=== PATIENT | female | born 1975 | race Caucasian/White ===

== ENCOUNTER 2016-10-10 08:18 | Emergency (ER) | payer OTHER ==
[2016-10-10 08:40] VITALS: BP 146/87
--- NOTE | 2016-10-10 09:14 | UC ---
Eye Complaint HPI - HPI Summary HPI Summary: right eye drainage and redness began this morning----has not had contact lens in for over 1 week - History of Current Complaint Chief Complaint: UCEye Stated Complaint: EYE ISSUE Time Seen by Provider: 10/10/16 08:49 Hx Obtained From: Patient Hx Last Menstrual Period: 10/04/16 ?: No Onset/Duration: Sudden Onset, Lasting Days - 1, Still Present Timing: Constant Severity Initially: Moderate Severity Currently: Moderate Pain Intensity: 3 Pain Scale Used: 0-10 Numeric Location of Injury: Conjunctiva Aggravating Factor(s): Nothing Alleviating Factor(s): Nothing Associated Signs And Symptoms: Positive: Drainage (Purulent) - Allergies/Home Medications Allergies/Adverse Reactions: Allergies Allergy/AdvReac Type Severity Reaction Status Date / Time No Known Allergies Allergy Verified 10/10/16 08:40 PMH/Surg Hx/FS Hx/Imm Hx Previously Healthy: Yes - Surgical History Surgical History: Yes Surgery Procedure, Year, and Place: Gastric bypass Jan 2012 - Family History Known Family History: Positive: None - negative for htn, or CAD - Social History Occupation: Employed Full-time Lives: With Family Alcohol Use: Occasionally Substance Use Type: None Smoking Status (MU): Never Smoked Tobacco - Immunization History Most Recent Influenza Vaccination: fall 2015 Review of Systems Constitutional: Negative Skin: Negative Eyes: Drainage - r, Eye Redness - r ENT: Negative Respiratory: Negative Cardiovascular: Negative Gastrointestinal: Negative Genitourinary: Negative Motor: Negative Neurovascular: Negative Musculoskeletal: Negative Neurological: Negative Psychological: Negative All Other Systems Reviewed And Are Negative: Yes Physical Exam Triage Information Reviewed: Yes Appearance: Well-Appearing, No Pain Distress, Well-Nourished Vital Signs: Initial Vital Signs Temp 99.4 F 10/10/16 08:35 Pulse 62 10/10/16 08:35 Resp 16 10/10/16 08:35 BP 146/87 10/10/16 08:35 Pulse Ox 100 10/10/16 08:35 Vital Signs Reviewed: Yes Eye Exam: Normal Eyes: Positive: Conjunctiva Inflamed - R, Discharge - R, Other: - perrla, eomi ENT Exam: Normal ENT: Positive: Normal ENT inspection, Hearing grossly normal, TMs normal. Negative: Nasal congestion, Nasal drainage, Trismus, Muffled/hoarse voice Dental Exam: Normal Neck exam: Normal Neck: Positive: Supple, Nontender Respiratory Exam: Normal Respiratory: Positive: Chest non-tender, Lungs clear, No accessory muscle use Cardiovascular Exam: Normal Cardiovascular: Positive: Pulses Normal, Brisk Capillary Refill Musculoskeletal Exam: Normal Musculoskeletal: Positive: Strength Intact, ROM Intact, No Edema Neurological Exam: Normal Neurological: Positive: Alert, Muscle Tone Normal Psychological Exam: Normal Skin Exam: Normal Eye Complaint Course/Dx - Course Course Of Treatment: polytrim eye drops right eye q 4 hours while awake for 5 days - Differential Dx/Diagnosis Differential Diagnosis/HQI/PQRI: Conjunctivitis, Periorbital Cellulitis, Orbital Cellulitis Provider Diagnoses: OD Conjuctivitis, High Blood Pressure with dx of Hypertension Discharge - Discharge Plan Condition: Stable Disposition: HOME Prescriptions: Polymyx/Trimethoprim OPTH* [Polytrim OPHTH*] 1 drop RIGHT EYE Q4H #1 btl Patient Education Materials: How to Use Eye Drops (ED), DASH Eating Plan (ED), Hypertension (ED), Conjunctivitis (ED) Forms: *Work Release Referrals: Casimiro San MD [Medical Doctor] - If Needed
== END 2016-10-10 09:18 | disposition home or self-care (01) ==
LOC: UCEAST 08:18
DX: H10.9 Unspecified conjunctivitis (principal); R03.0 Elevated blood-pressure reading, without diagnosis of hypertension
CPT/HCPCS: 99212; G0463

== ENCOUNTER 2017-04-03 14:09 | Emergency (ER) | payer OTHER ==
[2017-04-03 15:06] VITALS: BP 131/79
--- NOTE | 2017-04-03 16:21 | UC ---
Respiratory Complaint HPI - HPI Summary HPI Summary: 42 yo female with cough and wheezing x 1 week has been using neb low grade temp sinus pressure has a perceived "immunity to amoxicillin" - History of Current Complaint Chief Complaint: UCRespiratory Stated Complaint: UPPER RESP Time Seen by Provider: 04/03/17 16:17 Hx Obtained From: Patient Hx Last Menstrual Period: one week ago Onset/Duration: Gradual Onset, Lasting Days - 7+ Timing: Constant Severity Initially: Mild Severity Currently: Moderate Pain Intensity: 3 Pain Scale Used: 0-10 Numeric Character: Cough: Nonproductive Alleviating Factors: Bronchodilator Associated Signs And Symptoms: Positive: Wheezing, Nasal Congestion Related History: Similar Episode/Dx as: - bronchitis - Allergies/Home Medications Allergies/Adverse Reactions: Allergies Allergy/AdvReac Type Severity Reaction Status Date / Time No Known Allergies Allergy Verified 04/03/17 15:06 Home Medications: Home Medications Albuterol 2.5MG/3ML (0.083%)* [Ventolin 2.5 MG/3 ML NEB.EDMAR*] 1 dose INH Q4HR [History Confirmed 04/03/17] Albuterol HFA INHALER* [Ventolin HFA Inhaler*] 2 puff INH Q6HR 04/03/17 [ History Confirmed 04/03/17] PMH/Surg Hx/FS Hx/Imm Hx Previously Healthy: Yes Respiratory History: Asthma, Bronchitis, Pneumonia - Surgical History Surgical History: Yes Surgery Procedure, Year, and Place: Gastric bypass Jan 2012 - Family History Known Family History: Positive: None - negative for htn, or CAD, Respiratory Disease Negative: Cardiac Disease, Hypertension - Social History Alcohol Use: Occasionally Substance Use Type: None Smoking Status (MU): Never Smoked Tobacco - Immunization History Most Recent Influenza Vaccination: fall 2015 Review of Systems Constitutional: Fever Skin: Negative Eyes: Negative ENT: Nasal Discharge Respiratory: Cough Cardiovascular: Negative Gastrointestinal: Negative Genitourinary: Negative Motor: Negative Neurovascular: Negative Musculoskeletal: Negative Neurological: Negative Psychological: Negative Is Patient Immunocompromised?: No All Other Systems Reviewed And Are Negative: Yes Physical Exam Triage Information Reviewed: Yes Appearance: Well-Appearing, No Pain Distress, Well-Nourished Vital Signs: Initial Vital Signs Temp 99.1 F 04/03/17 15:04 Pulse 71 04/03/17 15:04 Resp 12 04/03/17 15:04 BP 131/79 01/18/18 15:04 Pulse Ox 100 04/03/17 15:04 Eyes: Positive: Conjunctiva Clear ENT: Positive: Pharynx normal, Nasal drainage, Uvula midline. Negative: Trismus , Muffled voice, Hoarse voice, Dental tenderness, Sinus tenderness Neck: Positive: Supple, Nontender, No Lymphadenopathy Respiratory: Positive: No respiratory distress, No accessory muscle use, Wheezing - with forced expiration Cardiovascular: Positive: RRR, No Murmur Musculoskeletal: Positive: ROM Intact, No Edema Neurological: Positive: Alert Psychological Exam: Normal Skin Exam: Normal UC Diagnostic Evaluation - Laboratory O2 Sat by Pulse Oximetry: 100 - normal/not hypoxic Respiratory Course/Dx - Differential Dx/Diagnosis Provider Diagnoses: acute bronchitis with bronchospasm Discharge - Discharge Plan Condition: Stable Disposition: HOME Prescriptions: Azithromycin TAB* [Zithromax TAB*] 250 mg PO DAILY #6 tab Prednisone [Deltasone] 40 mg PO DAILY #10 tab Patient Education Materials: Acute Bronchitis (ED) Forms: *Work Release Referrals: [facility] [Outside] - If Needed (call this number for help finding a local MD) Additional Instructions: use nebs as directed recheck in 4 days if not better
== END 2017-04-03 16:31 | disposition home or self-care (01) ==
LOC: UCEAST 14:09
DX: J20.9 Acute bronchitis, unspecified (principal)
CPT/HCPCS: 99212; G0463

== ENCOUNTER 2019-01-19 20:26 | Emergency (ER) | payer BC, OTHER ==
[2019-01-19 20:42] VITALS: BP 136/95
--- NOTE | 2019-01-19 20:47 | UC ---
HPI BURN - HPI Summary HPI Summary: Pleasant 43 yo female c/o dorsal L foot burn, s/p accidentally spilling boiling water from pasta on foot approx 40 min [employer]. Painful. Last tet thinks utd. No other burn / injury site. Has ice / wet paper towels. - History of Current Complaint Chief Complaint: UCSkin Stated Complaint: LT FOOT BURN Time Seen by Provider: 01/19/19 20:41 Hx Obtained From: Patient Hx Last Menstrual Period: one week ago Pain Intensity: 7 - Allergy/Home Medications Allergies/Adverse Reactions: Allergies Allergy/AdvReac Type Severity Reaction Status Date / Time No Known Allergies Allergy Verified 01/19/19 20:42 PMH/Surg Hx/FS Hx/Imm Hx Previously Healthy: Yes - Surgical History Surgical History: Yes Surgery Procedure, Year, and Place: Gastric bypass Jan 2012 - Family History Known Family History: Positive: None - negative for htn, or CAD, Respiratory Disease Negative: Cardiac Disease, Hypertension - Social History Alcohol Use: Occasionally Substance Use Type: None Smoking Status (MU): Never Smoked Tobacco - Immunization History Most Recent Influenza Vaccination: fall 2015 Review of Systems All Other Systems Reviewed And Are Negative: Yes Constitutional: Positive: Negative Skin: Positive: Other - see hpi Eyes: Positive: Negative ENT: Positive: Negative Respiratory: Positive: Negative Cardiovascular: Positive: Negative Gastrointestinal: Positive: Negative Genitourinary: Positive: Negative Motor: Positive: Other - see hpi Neurovascular: Positive: Negative Musculoskeletal: Positive: Negative Neurological: Positive: Negative Psychological: Positive: Negative Is Patient Immunocompromised?: No Physical Exam Triage Information Reviewed: Yes Appearance: Well-Appearing, Well-Nourished Vital Signs: Initial Vital Signs Temp 99.0 F 01/19/19 20:39 Pulse 80 01/19/19 20:39 Resp 16 01/19/19 20:39 BP 136/95 01/19/19 20:39 Pulse Ox 97 01/19/19 20:39 Vital Signs Reviewed: Yes Eye Exam: Normal - grossly normal ENT Exam: Normal Neck exam: Normal - grossly normal Respiratory Exam: Normal - RR normal, no dyspnea, no tachypnea Cardiovascular Exam: Normal - HR normal, nondiaphoretic Abdominal Exam: Normal - grossly normal, benign Musculoskeletal Exam: Other - see "skin" below Neurological Exam: Normal - grossly nonfocal Psychological Exam: Normal - conversing easily and appropriately. Skin Exam: Other - nondiaphoretic. No visible or reported rash. L dorsal foot + redness at site of burn approx 11cm x 6cm. Small water bubbles but not yet full blister. CR to toes good. Burn extends to toes, but not fully distal toes. Burn Calculation - [place] Formula for Fluid Resuscitation 24 -Hour Fluid Replacement: 0.0 Course/Dx Burn - Course Course Of Treatment: Reviewed coa / tx plan. Reviewed wound care. Pt would like pain medication, denies personal / fam / household hx addiction. Usual narc talk. EMLA here. Will start silvadene at home. Will check tet immun status with pcp. Will call pcp for f/u this week if possible. Questions as posed answered to the best of my ability. - Diagnoses Provider Diagnosis: Burn Discharge ED - Sign-Out/Discharge Documenting (check all that apply): Patient Departure All imaging exams completed and their final reports reviewed: No Studies - Discharge Plan Condition: Stable Disposition: HOME Prescriptions: HYDROcodone/ACETAMIN 5-325 MG* [[place] 5-325 TAB*] 1 tab PO Q6H PRN #8 tab MDD 4 PRN Reason: Pain - Severe Patient Education Materials: Second Degree Burn (ED) Referrals: Jessica Ziegler MD [Primary Care Provider] - Additional Instructions: Your foot burn likely will blister. Try not to pop the blisters. Silvadene cream - apply thin layer to affected area bid x 5 days Cover with gauze or pad (no "telfa"). Avoid triple antibiotic / neosporin. Elevate as much as possible Do not drive or operate heavy machinery while taking pain medication. Pain medication will cause constipation. - Billing Disposition and Condition Condition: STABLE Disposition: Home
[2019-01-19] MEDS ORDERED: predniSONE TAB* 20 MG PO ONE (20:58)
[2019-01-19] MEDS ORDERED: Silver Sulfadiazine 1%* 20 GM TOPICAL ONE (20:59)
[2019-01-19] MEDS ORDERED: Lidocaine 2.5%/Prilocain 2.5%* 5 GM TUBE TOPICAL ONE (21:00)
[2019-01-19] MEDS ORDERED: HYDROcodone/ACETAMIN 5-325 MG* 1 TAB PO ONE (21:04)
== END 2019-01-19 21:29 | disposition home or self-care (01) ==
LOC: UCCORT 20:26
DX: T25.222A Burn of second degree of left foot, initial encounter (principal); T31.0 Burns involving less than 10% of body surface; X12.XXXA Contact with other hot fluids, initial encounter; Y93.G1 Activity, food preparation and clean up; Y92.9 Unspecified place or not applicable
CPT/HCPCS: 99213; A9270-GY; G0463; J7512

== ENCOUNTER 2019-05-14 18:18 | Emergency (ER) | payer BC ==
[2019-05-14 18:39] VITALS: BP 152/84
[2019-05-14 19:10] LABS: Influenza A Molecular Negative (Negative); Influenza B Molecular Negative (Negative)
[2019-05-14] MEDS ORDERED: Albuterol HFA INHALER* 8 gm MDI INH ONE (19:32)
--- NOTE | 2019-05-14 19:36 | UC ---
Rectal Pain HPI - HPI Summary HPI Summary: 44 yo asthmatic with 4-5 day hx of cough and wheezing using a friends rescue inhaler (she no longer has one) no fever has had chills fatigue no cp or sob - History Of Current Complaint Chief Complaint: UCRespiratory Stated Complaint: COUGH, CONGESTION Time Seen by Provider: 05/14/19 19:22 Hx Obtained From: Patient Hx Last Menstrual Period: one week ago Onset/Duration: Gradual Onset Timing: Constant Severity Initially: Mild Severity Currently: Moderate Pain Intensity: 0 Pain Scale Used: 0-10 Numeric Aggravating Factor(s): Nothing Alleviating Factor(s): Other - MDI - Allergies/Home Medications Allergies/Adverse Reactions: Allergies Allergy/AdvReac Type Severity Reaction Status Date / Time No Known Allergies Allergy Verified 05/14/19 18:36 Home Medications: Home Medications D-Methorphan/PE/Acetaminophen [Daytime Cold Multi-Symp Gelcap] 1 each PO ONCE [History Confirmed 05/14/19] guaiFENesin/CODIENE 100mg/10mg [Robitussin AC 100Mg/10Mg in 5 ml] 10 ml PO Q4H PRN #100 udc MDD 40 05/14/19 [Rx] predniSONE 20 mg TAB [Deltasone 20 MG TAB*] 40 mg PO DAILY #8 tab 05/14/19 [Rx] PMH/Surg Hx/FS Hx/Imm Hx Previously Healthy: Yes Respiratory History: Asthma, Bronchitis - Surgical History Surgical History: Yes Surgery Procedure, Year, and Place: Gastric bypass Jan 2012 - Family History Known Family History: Positive: Respiratory Disease Negative: Cardiac Disease, Hypertension - Social History Alcohol Use: Occasionally Substance Use Type: None Smoking Status (MU): Never Smoked Tobacco - Immunization History Most Recent Influenza Vaccination: fall 2015 Review of Systems All Other Systems Reviewed And Are Negative: Yes Constitutional: Positive: Chills, Fatigue Skin: Positive: Negative Eyes: Positive: Negative ENT: Positive: Negative Respiratory: Positive: Cough, Other - wheezing Cardiovascular: Positive: Negative Gastrointestinal: Positive: Negative Genitourinary: Positive: Negative Motor: Positive: Negative Neurovascular: Positive: Negative Musculoskeletal: Positive: Negative Neurological/Mental Status: Positive: Negative Psychological: Positive: Negative Physical Exam Triage Information Reviewed: Yes Appearance: Well-Appearing, No Pain Distress, Well-Nourished Vital Signs: Initial Vital Signs Temp 99.2 F 05/14/19 18:34 Pulse 76 05/14/19 18:34 Resp 21 05/14/19 18:34 BP 152/84 05/14/19 18:34 Pulse Ox 98 05/14/19 18:34 Vital Signs Reviewed: Yes Eyes: Positive: Conjunctiva Clear ENT: Positive: Hearing grossly normal, Nasal congestion, Uvula midline. Negative: Nasal drainage, Tonsillar swelling, Tonsillar exudate, Trismus, Muffled voice, Hoarse voice, Sinus tenderness Dental Exam: Normal Neck: Positive: Supple, Nontender, No Lymphadenopathy Respiratory: Positive: No respiratory distress, No accessory muscle use, Wheezing - narendra with forced exp Cardiovascular: Positive: RRR, No Murmur Abdomen Description: Positive: Nontender Bowel Sounds: Positive: Present Musculoskeletal: Positive: ROM Intact, No Edema Neurological: Positive: Alert Psychological Exam: Normal Skin Exam: Normal Rectal Pain Course/Dx - Differential Dx/Diagnosis Provider Diagnosis: Viral bronchitis Discharge ED - Sign-Out/Discharge Documenting (check all that apply): Patient Departure All imaging exams completed and their final reports reviewed: No Studies - Discharge Plan Condition: Stable Disposition: HOME Prescriptions: guaiFENesin/CODIENE 100mg/10mg [Robitussin AC 100Mg/10Mg in 5 ml] 10 ml PO Q4H PRN #100 udc MDD 40 PRN Reason: Cough predniSONE 20 mg TAB [Deltasone 20 MG TAB*] 40 mg PO DAILY #8 tab Patient Education Materials: Bronchospasm (ED), How to Use a Metered-Dose Inhaler and a Spacer (ED) Referrals: Jessica Ziegler MD [Primary Care Provider] - 4 Days (if not better ) - Billing Disposition and Condition Condition: STABLE Disposition: Home
== END 2019-05-14 19:44 | disposition home or self-care (01) ==
LOC: UCCORT 18:18
DX: J20.8 Acute bronchitis due to other specified organisms (principal); J45.909 Unspecified asthma, uncomplicated; Z79.52 Long term (current) use of systemic steroids
CPT/HCPCS: 99212; A9270-GY; G0463; J7512